=== PATIENT | female | born 1960 | race Caucasian/White ===

== ENCOUNTER 2020-09-30 07:16 | Day surgery (SDC) | payer OTHER, SELFPAY ==
--- NOTE | 2020-09-30 | PATH_ITS ---
[facility] Accession Number: [id number] . 01 Material submitted: . PART A: colon - POLYPS AT 30CM PART B: colon - POLYP AT 20CM . 02 Diagnosis: A. Colon Polyps at 30 cm, Biopsies: Fragments of hyperplastic polyp. . B. Colon Polyp at 20 cm, Biopsy: Hyperplastic polyp. MRV 10/04/2020 1345 Local . 02 Electronically signed: . Guanakito Patel MD, PhD, Pathologist NPI- [id number] . 01 Gross description: . Part A: POLYPS AT 30CM: Received in formalin are 2 fragment(s) of aguilar, soft tissue measuring 0.4 x 0.3 x 0.1 cm to 0.3 x 0.3 x 0.2 cm submitted entirely in 1 cassette(s) Part B: POLYP AT 20CM: Received in formalin are 2 fragment(s) of aguilar, soft tissue measuring 0.8 x 0.3 x 0.1 cm to 0.3 x 0.2 x 0.1 cm submitted entirely in 1 cassette(s) /QBJ 10/01/2020 1034 Local . 02 Pathologist provided ICD-10: K63.5 . 02 CPT . 783008, 474168 Performed at: 01 [facility] [address], [place], [place] [id number] MD Ivan Dennis MD Phone: [phone] Performed at: 02 [facility] [place] [address] [place], [place] [id number] MD Rosina Mccabe MD Phone: [phone]
[2020-09-30 07:36] VITALS: BP 142/86; PULSE 99; RESP 16; TEMP 37.1; O2SAT 97; BMI 38.0
[2020-09-30] MEDS: SODIUM CHLORIDE 0.9% 1,000 ML 200 ML IV (07:45)
--- NOTE | 2020-09-30 08:21 | P.HP_ITS ---
History of Present Illness History of Present Illness Date Patient Seen: 09/30/20 Time Patient Seen: 08:21 Chief complaint: [facility] Narrative: This is a 60-year-old woman who is here for follow-up colonoscopy. She had a colonoscopy in 2011 were several minor polyps were found, and she was recommended to have a follow-up colonoscopy 3-5 years. She denies any changes since then in her bowel habits. She denies any melena, hematochezia, unexplained abdominal pain, unexplained weight loss. She denies any family history of colon polyps or colon cancers. She has recently started on insulin for her diabetes, but denies any other significant medical changes. She says she has never had a heart attack or stroke, and has good exercise tolerance. ROS: Irregular heartbeat, arthritis, he knee pain, headaches, depression, Thirteen system review is otherwise negative other than as mentioned below and in HPI. PE GENERAL: Well groomed and cooperative. Obese. Appears stated age. Answers questions promptly and appropriately. Vital signs noted. HENT: Normocephalic, atraumatic. Hearing intact. EYES: Conjunctiva pink, sclera white, no periorbital swelling. CARDIOVASCULAR: Regular rate. No pedal edema. RESPIRATORY: Non-tachypneic, breathing comfortably on room air. GASTROINTESTINAL: Abdomen soft and non-distended GENITALURINARY: No flank tenderness. MUSCULOSKELETAL: Equal tone and mass bilaterally. SKIN: Warm, dry, soft, appropriate color for ethnicity. No other lesions, rashes, or wounds. NEURO: Alert and Oriented X 3. No gross sensory deficits, or cognitive issues. PSYCH: Appropriate affect and mood. Patient History Family & Social History Social History: household members none Tobacco & Substance use: Smoking Status Never smoker alcohol intake frequency holiday/special occasion Substance Use Type does not use Meds Home Medications and Allergies Home Medications Medication Instructions Recorded Confirmed Type atorvastatin 10 mg PO DAILY 09/30/20 09/30/20 History glipizide 10 mg PO DAILY 09/30/20 09/30/20 History insulin NPH isoph U-100 human 12 unit SUBCUT DAILY 09/30/20 09/30/20 History [Humulin N Pen] lisinopril 5 mg PO DAILY 09/30/20 09/30/20 History metformin 1,000 mg PO BID 09/30/20 09/30/20 History Allergies Allergy/AdvReac Type Severity Reaction Status Date / Time tioconazole AdvReac Verified 09/30/20 07:27 [From Monistat 1 (tioconazole)] Exam Vital Signs (past 8 hours): - 09/30/20 07:36 Temperature 98.7 F Pulse Rate 99 H Respiratory Rate 16 Blood Pressure 142/86 H Pulse Oximetry 97 Oxygen Delivery Method Room Air Assessment & Plan Assessment and plan (1) DM type 2 (diabetes mellitus, type 2): Status: Acute (2) Hypertension: Status: Acute (3) Obesity (BMI 35.0-39.9 without comorbidity): Status: Acute (4) Depression: Status: Acute (5) Personal history of colonic polyps: Status: Acute Assessment & Plan narrative: Risks and benefits of screening colonoscopy and possible polypectomy were discussed with the patient including risk of bleeding, perforation, need for additional procedures, risks of anesthesia. The patient desires to proceed with the colonoscopy procedure. COVID-19 COVID-19 status: Negative Result date/Date tested (Pos, Neg/Pending): 09/28/20 Time Spent With Patient Time with patient: 15-24 minutes Quality VTE Deep Vein Thrombosis/Pulmonary Embolism Present on Admission: No
--- NOTE | 2020-09-30 08:25 | P.OP.ENDO_ITS ---
Operative Date/Time/Diagnoses Date of procedure: 09/30/20 Time of procedure: 08:25 Pre-op diagnosis: Personal history of colon polyps, due for surveillance colonoscopy Post-op diagnosis: other (Three small polyps) Procedure & Clinicians Study performed: Colonoscopy Procedural sedation performed by the endoscopist Polypectomy x3 with Jumbo forceps Same procedure as scheduled: Yes Indications: Personal history of colon polyps, due for follow-up colonoscopy Surgeon: Ruby Dalton Procedure Notes SCOAP/Timeout: Performed Procedure in detail: The patient was brought to the room and placed in left lateral decubitus position with all bony prominences padded. A time-out was performed and then the patient was given procedural sedation starting with 4 mg of Versed and 100 mcg of fentanyl. Vitals were monitored throughout the procedure and remained stable. Once adequately sedated, the procedure was begun. A rectal exam was performed revealing no abnormalities. The colonoscope was then introduced to the rectum and advanced to the cecum in the usual fashion. The cecum was identified by the appendiceal orifice, the mucosal tri- fold, and the ileocecal valve. The scope was then retracted while rotating side to side and examining each mucosal fold. Three small polyps were found, 2 at 30 cm, and 1 at 20 cm. They were removed with Jumbo forceps and sent for pathology. At the conclusion of the procedure retroflexion was performed and small grade 1-2 internal hemorrhoids without stigmata of bleeding were seen. The scope was then withdrawn from the rectum the procedure was concluded. The patient tolerated the procedure well and was transferred to the PACU in stable condition. Scope withdrawal time: 11 Sedation minutes: 27 Findings: polyp (Three small polyps, benign appearing) Specimen(s): other (Three small polyps) Complications: none Impression: Benign-appearing polyps Post-procedure Recommendations: Colonscopy in 5 years (Due to personal history of colon polyps, and recurrence of colon polyps, assuming pathology results and benign pre) Follow up: as needed Disposition: PACU
[2020-09-30] MEDS: fentaNYL 250 MCG/5 ML INJ IV (08:26)
[2020-09-30] MEDS: MIDAZOLAM 5 MG/5 ML VIAL IV (08:29)
[2020-09-30 08:58] VITALS: BP 115/77; PULSE 81; RESP 16; TEMP 36.8; O2SAT 96
[2020-09-30 09:03] VITALS: BP 121/71; PULSE 80; RESP 14; O2SAT 96
[2020-09-30 09:08] VITALS: BP 114/71; PULSE 81; RESP 14; O2SAT 97
[2020-09-30 09:11] VITALS: BP 119/69; PULSE 80; RESP 16; TEMP 36.7; O2SAT 96
[2020-09-30 09:25] VITALS: BP 119/74; PULSE 71; RESP 17; TEMP 36.6; O2SAT 97
== END 2020-09-30 09:34 | disposition home or self-care (01) ==
PROVIDERS: Referring Provider Surgery; Visit Provider Surgery
PROC: 0DJD8ZZ Inspection of Lower Intestinal Tract, Via Natural or Artificial Opening Endoscopic (ICD-10-PCS; CPT 45378; principal; 2020-09-30 08:30)
DX: Z12.11 Encounter for screening for malignant neoplasm of colon (principal); Z86.010 Personal history of colon polyps; E11.9 Type 2 diabetes mellitus without complications; Z79.4 Long term (current) use of insulin; E66.9 Obesity, unspecified; Z68.35 Body mass index [BMI] 35.0-35.9, adult; I10 Essential (primary) hypertension; F32.9 Major depressive disorder, single episode, unspecified; K57.30 Diverticulosis of large intestine without perforation or abscess without bleeding; K64.0 First degree hemorrhoids; K63.5 Polyp of colon
CPT/HCPCS: 45380; 82962; 99152; 99153; J2250; J3010